=== PATIENT | female | born 1940 | race Caucasian/White ===

== ENCOUNTER 2024-03-29 06:31 | Day surgery (SDC) | payer OTHER, SELFPAY | END 2024-03-29 10:24 | disposition home or self-care (01) | LOC: GI 06:31 | PROVIDERS: ATTENDING PHYSICIAN Internal Medicine Gastroenterology | DX: K51.911 Ulcerative colitis, unspecified with rectal bleeding (principal); K62.5 Hemorrhage of anus and rectum; K62.89 Other specified diseases of anus and rectum | CPT/HCPCS: 45331; 88305; 88342 ==